=== PATIENT | female | born 1965 | race Caucasian/White ===

== ENCOUNTER 2018-06-20 12:58 | Emergency (ER) | payer MEDICAID ==
--- NOTE | 2018-06-20 13:45 | EDPHY ---
H & P Time Seen by Provider: 06/20/18 13:41 HPI/ROS: Chief complaint. Headache HPI. 53-year-old female presents emergency department with several months complaint of hard time thinking. Gradually it seems to be getting worse. She feels connections in her brain are slow or not connecting. She feels foggy. Symptoms have been worse the last 2 days. She states occasionally wrong words. Occasional headache. Her vision is okay. No focal weakness or paresthesias to arms or legs. No upper respiratory symptoms. No fever. No head injury. No chest discomfort or trouble breathing. No abdominal pain. Occasional nausea ROS 10 systems were reviewed and negative with the exception of the elements mentioned in the history of present illness Past Medical/Surgical History: Healthy Social History: Single, nonsmoker, no alcohol Smoking Status: Never smoked Physical Exam: General Appearance: Alert well-developed female not distress vital signs are stable Eyes: Pupils equal and round no pallor or injection. ENT, Mouth: Mucous membranes are moist. Respiratory: There are no retractions, lungs are clear to auscultation. Cardiovascular: Regular rate and rhythm. Gastrointestinal: Abdomen is soft and nontender, no masses, bowel sounds normal. Neurological: Awake and alert, sensory and motor exams grossly normal. Speech is normal. Cranial nerves are normal. There is no pronator drift. Finger-to- nose and [id number] are intact bilaterally Skin: Warm and dry, no rashes. Musculoskeletal: Neck is supple nontender. Extremities symmetrical, full range of motion. Psychiatric: Patient is oriented X 3, there is no agitation. Constitutional: Initial Vital Signs Temperature (C) 36.4 C 06/20/18 13:02 Heart Rate 96 06/20/18 13:02 Respiratory Rate 16 06/20/18 13:02 Blood Pressure 152/94 H 06/20/18 13:02 O2 Sat (%) 96 06/20/18 13:02 O2 Delivery Mode Room Air Allergies/Adverse Reactions: No Allergies [NKDA] Allergy (Verified 03/13/10 10:01) SEASONAL Allergy (Intermediate, Uncoded 03/13/10 10:02) Congestion Home Medications: Medication Instructions Recorded NK [No Known Home Meds] 06/20/18 Medical Decision Making - Diagnostics Imaging Results: MRI brain without and with contrast reviewed by me and discussed with Radiology shows no infarct, hemorrhage, tumor. She does have left maxillary sinusitis. Reviewed by me and discussed with Radiology Procedures: IV normal saline ED Course/Re-evaluation: Re-evaluation 3:30 p.m.. Patient and I discussed imaging and lab results. We discussed treatment plan including criteria for return and importance of follow- up and further evaluation. She expresses understanding and agreement Differential Diagnosis: I considered infarct, CVA, hemorrhage, tumor. It is possible this represents early dementia - Data Points Laboratory Results: Laboratory Results 06/20/18 13:50 06/20/18 13:50 06/20/18 06/20/18 13:50 13:50 WBC 7.60 10^3/uL 10^3/uL (3.80-9.50) RBC 4.54 10^6/uL 10^6/uL (4.18-5.33) Hgb 13.8 g/dL g/dL (12.6-16.3) Hct 41.0 % % (38.0-47.0) MCV 90.3 fL fL (81.5-99.8) MCH 30.4 pg pg (27.9-34.1) MCHC 33.7 g/dL g/dL (32.4-36.7) RDW 13.2 % % (11.5-15.2) Plt Count 275 10^3/uL 10^3/uL (150-400) MPV 10.1 fL fL (8.7-11.7) Neut % (Auto) 61.0 % % (39.3-74.2) Lymph % (Auto) 30.8 % % (15.0-45.0) Waldo % (Auto) 5.7 % % (4.5-13.0) Eos % (Auto) 1.7 % % (0.6-7.6) Baso % (Auto) 0.5 % % (0.3-1.7) Nucleat RBC Rel Count 0.0 % % (0.0-0.2) Absolute Neuts (auto) 4.64 10^3/uL 10^3/uL (1.70-6.50) Absolute Lymphs (auto) 2.34 10^3/uL 10^3/uL (1.00-3.00) Absolute Monos (auto) 0.43 10^3/uL 10^3/uL (0.30-0.80) Absolute Eos (auto) 0.13 10^3/uL 10^3/uL (0.03-0.40) Absolute Basos (auto) 0.04 10^3/uL 10^3/uL (0.02-0.10) Absolute Nucleated RBC 0.00 10^3/uL 10^3/uL (0-0.01) Immature Gran % 0.3 % % (0.0-1.1) Immature Gran # 0.02 10^3/uL 10^3/uL (0.00-0.10) Sodium 140 mEq/L mEq/L (135-145) Potassium 4.2 mEq/L mEq/L (3.5-5.2) Chloride 106 mEq/L mEq/L (97-110) Carbon Dioxide 24 mEq/l mEq/l (22-31) Anion Gap 10 mEq/L mEq/L (6-14) BUN 10 mg/dL mg/dL (7-23) Creatinine 0.7 mg/dL mg/dL (0.6-1.0) Estimated GFR > 60 Glucose 96 mg/dL mg/dL (70-100) Calcium 9.8 mg/dL mg/dL (8.5-10.4) Medications Given: Discontinued Medications Sodium Chloride (Ns) 1,000 mls @ 0 mls/hr IV EDNOW ONE; Wide Open PRN Reason: Protocol Stop: 06/20/18 14:03 Last Admin: 06/20/18 14:07 Dose: 1,000 mls Departure - Departure Disposition: Home, Routine, Self-Care Clinical Impression: Memory loss of unknown cause Condition: Good Instructions: Sinusitis (ED) Additional Instructions: Flonase as directed for left maxillary sinusitis Return for worsening symptoms. You're workup was normal today. We would like you to follow up with Neurology for further evaluation Referrals: NONE *PRIMARY CARE P,. [Primary Care Provider] - As per Instructions Olayinka Sorenson MD [Medical Doctor] - 5-7 days, call for appt.
[2018-06-20] MEDS ORDERED: NS 1,000 ML IV ONE (14:02)
[2018-06-20 14:13] LABS: PLATELET COUNT 275 10^3/uL (150-400)
[2018-06-20] MEDS ORDERED: GADOBUTROL 10 ML VIAL IVP ONE (14:40)
[2018-06-20 16:06] VITALS: BP 138/81
== END 2018-06-20 16:07 | disposition home or self-care (01) ==
DX: R41.3 Other amnesia (principal); J32.0 Chronic maxillary sinusitis; E86.9 Volume depletion, unspecified
CPT/HCPCS: A9585